=== PATIENT | female | born 1935 | race Two or more races ===

== ENCOUNTER 2019-08-23 20:01 | Inpatient (IN) | payer MEDICAID ==
[~2019-08-23] VITALS: Ht 154.9 cm; Wt 74.1 kg
[2019-08-24] MEDS ORDERED: MORPHINE SULFATE 4 MG/ML CPJ (NOT FOR IM USE) IV STA (02:25)
[2019-08-24] MEDS ORDERED: ONDANSETRON HCL 4MG/2ML INJ IV STA (02:25)
[2019-08-24] MEDS ORDERED: CLINDAMYCIN 600 MG in DEXTROSE 5% WATER 50 ML IV ONE (02:30)
[2019-08-24 03:10] LABS: BASOPHILS % 0.7 % (0.0-2.0); EOSINOPHILS % 7.5 % (0.0-5.0); HEMATOCRIT. 26.1 % (36.0-48.0); HEMOGLOBIN. 8.7 g/dL (12.0-16.0); LYMPHOCYTES % 18.6 % (20.0-50.0); MEAN CORPUSCULAR VOLUME 87.3 fL (81.0-99.0); MEAN PLATELET VOLUME 8.4 fl (7.4-10.4); MONOCYTES % 5.5 % (2.0-8.0); NEUTROPHILS % 67.7 % (40.0-76.0); PLATELET 267 x1000/uL (130-400); RED BLOOD CELL COUNT 2.99 mill/uL (4.2-5.4); RED CELL DISTRIBUTION WIDTH 14.5 % (11.6-14.6)
[2019-08-24 03:22] LABS: CHLORIDE 100 mEq/L (98-107)
[2019-08-24] MEDS ORDERED: CLINDAMYCIN 600 MG in SODIUM CHLORIDE 0.9% 50 ML IV NR (03:30)
[2019-08-24] MEDS ORDERED: SODIUM CHLORIDE 0.9% 1,000 ML IV ONE (04:48)
[2019-08-24 09:10] VITALS: BP 137/70
[2019-08-24 09:31] VITALS: BP 137/70
[2019-08-24 10:00] VITALS: BP 120/65
[2019-08-24] MEDS ORDERED: DOCUSATE SODIUM 100MG CAPSULE PO PRN (11:45)
[2019-08-24] MEDS ORDERED: ACETAMINOPHEN 325MG TABLET PO PRN (11:45)
[2019-08-24] MEDS ORDERED: GUAIFENESIN 200MG/10ML SUGAR FREE UDC PO PRN (11:45)
[2019-08-24] MEDS ORDERED: LORAZEPAM 0.5MG TABLET PO PRN (11:45)
[2019-08-24] MEDS ORDERED: CLONIDINE 0.1MG TABLET PO PRN (11:45)
[2019-08-24] MEDS ORDERED: IPRATROPIUM/ALBUTEROL 0.5-3(2.5)MG/3ML NEB HHN PRN (12:00)
[2019-08-24] MEDS ORDERED: PIOG15TA68 MT (12:38)
[2019-08-24] MEDS ORDERED: FERR325T6 MT (12:38)
[2019-08-24] MEDS ORDERED: ATOR40TA70 MT (12:38)
[2019-08-24] MEDS ORDERED: LISI10TA5 MT (12:38)
[2019-08-24] MEDS ORDERED: RIVA10TA MT (12:38)
[2019-08-24] MEDS ORDERED: LEVO50TA8 MT (12:38)
[2019-08-24] MEDS ORDERED: PREG150C MT (12:38)
[2019-08-24] MEDS ORDERED: LIP40 MT (12:38)
[2019-08-24] MEDS ORDERED: GLIP10TA10 MT (12:38)
[2019-08-24] MEDS: SODIUM CHLORIDE 0.9% 1,000 ML IV SCH (13:45)
[2019-08-24] MEDS: LEVOTHYROXINE SODIUM 50MCG TABLET PO SCH (13:45)
[2019-08-24] MEDS ORDERED: VANCOMYCIN 1500MG in DEXTROSE 5% WATER 250ML IV NR (14:00)
[2019-08-24] MEDS: PIPERACILLIN/TAZOBACTAM 2.25 G in DEXTROSE 5% WATER 50 ML IV SCH ×3 (14:35→23:19)
[2019-08-24] MEDS ORDERED: DEXTROSE 50% WATER 50ML SYRINGE IV PRN (15:30)
[2019-08-24 16:00] VITALS: BP 125/58
[2019-08-24] MEDS: BLOOD SUGAR DIAGNOSTIC STRIP TEST SCH ×2 (17:30→21:14)
[2019-08-24] MEDS: INSULIN LISPRO 100 UNITS/ML SUBCUT SCH ×2 (18:00→21:13)
[2019-08-24 20:00] VITALS: BP 103/34
[2019-08-24] MEDS: ATORVASTATIN CALCIUM 40MG TABLET PO SCH (21:12)
[2019-08-24 22:00] VITALS: BP 121/46
[2019-08-25] VITALS (11 sets, daily range): BP systolic 105–138; BP diastolic 40–79
[2019-08-25] MEDS: HYDROCODONE/ACETAMINOPHEN 5/325MG TABLET PO PRN ×2 (03:18→15:10)
[2019-08-25] MEDS: PIPERACILLIN/TAZOBACTAM 2.25 G in DEXTROSE 5% WATER 50 ML IV SCH ×4 (05:29→23:29)
[2019-08-25] MEDS: SODIUM CHLORIDE 0.9% 1,000 ML IV SCH ×2 (05:29→17:05)
[2019-08-25 07:34] LABS: BASOPHILS % 0.6 % (0.0-2.0); HEMATOCRIT. 23.8 % (36.0-48.0); LYMPHOCYTES % 21.8 % (20.0-50.0); MEAN CORPUSCULAR HEMOGLOBIN 29.3 pg (28.0-32.0); MEAN CORPUSCULAR VOLUME 86.8 fL (81.0-99.0); MEAN PLATELET VOLUME 8.6 fl (7.4-10.4); NEUTROPHILS % 63.6 % (40.0-76.0); PLATELET 245 x1000/uL (130-400); RED BLOOD CELL COUNT 2.74 mill/uL (4.2-5.4); RED CELL DISTRIBUTION WIDTH 14.4 % (11.6-14.6)
[2019-08-25] MEDS: BLOOD SUGAR DIAGNOSTIC STRIP TEST SCH ×4 (07:41→21:22)
[2019-08-25] MEDS: LEVOTHYROXINE SODIUM 50MCG TABLET PO SCH (07:43)
[2019-08-25] MEDS: INSULIN LISPRO 100 UNITS/ML SUBCUT SCH ×4 (08:00→21:21)
[2019-08-25] MEDS ORDERED: HEPARIN SODIUM 1,000 UNIT/1ML VIAL IV ONE (11:44)
[2019-08-25] MEDS: VANCOMYCIN 750 MG PREMIX 150 ML IV SCH (15:09)
[2019-08-25] MEDS ORDERED: IOHEXOL-350 100 ML BOTTLE ONE (15:16)
[2019-08-25] MEDS: AMLODIPINE 5MG TABLET PO SCH (18:09)
[2019-08-25] MEDS: ATORVASTATIN CALCIUM 40MG TABLET PO SCH (21:22)
[2019-08-25] MEDS: ONDANSETRON HCL 4MG/2ML INJ IV PRN (23:29)
[2019-08-26] VITALS (9 sets, daily range): BP systolic 84–135; BP diastolic 42–77
[2019-08-26] MEDS: SODIUM CHLORIDE 0.9% 1,000 ML IV SCH ×2 (03:45→17:03)
[2019-08-26] MEDS: PIPERACILLIN/TAZOBACTAM 2.25 G in DEXTROSE 5% WATER 50 ML IV SCH ×3 (05:21→17:04)
[2019-08-26 06:59] LABS: BASOPHILS % 0.7 % (0.0-2.0); EOSINOPHILS % 6.8 % (0.0-5.0); HEMATOCRIT. 24.8 % (36.0-48.0); HEMOGLOBIN. 8.3 g/dL (12.0-16.0); LYMPHOCYTES % 23.5 % (20.0-50.0); MEAN CORPUSCULAR HEMOGLOBIN 29.2 pg (28.0-32.0); MEAN CORPUSCULAR VOLUME 87.2 fL (81.0-99.0); MEAN PLATELET VOLUME 8.5 fl (7.4-10.4); MONOCYTES % 5.7 % (2.0-8.0); NEUTROPHILS % 63.3 % (40.0-76.0); PLATELET 248 x1000/uL (130-400); RED BLOOD CELL COUNT 2.84 mill/uL (4.2-5.4); RED CELL DISTRIBUTION WIDTH 14.2 % (11.6-14.6)
[2019-08-26] MEDS: LEVOTHYROXINE SODIUM 50MCG TABLET PO SCH (07:30)
[2019-08-26] MEDS: INSULIN LISPRO 100 UNITS/ML SUBCUT SCH ×4 (08:00→21:24)
[2019-08-26] MEDS: BLOOD SUGAR DIAGNOSTIC STRIP TEST SCH ×4 (08:07→21:19)
[2019-08-26] MEDS: AMLODIPINE 5MG TABLET PO SCH (08:18)
[2019-08-26] MEDS ORDERED: IODIXANOL 320MG/ML 100 ML BOTTLE IV ONE (11:20)
[2019-08-26] MEDS ORDERED: LIDOCAINE HCL 1% 20ML VIAL (Pyxis) INJ ONE (11:20)
[2019-08-26] MEDS ORDERED: MIDAZOLAM HCL 2 MG/2 ML VIAL ONE (11:42)
[2019-08-26] MEDS ORDERED: FENTANYL CITRATE/PF 50MCG/ML 2ML VIAL ONE (11:42)
[2019-08-26] MEDS ORDERED: IOHEXOL-300 100 ML BOTTLE ONE (12:05)
[2019-08-26] MEDS: HYDROCODONE/ACETAMINOPHEN 5/325MG TABLET PO PRN (14:28)
[2019-08-26] MEDS: VANCOMYCIN 750 MG PREMIX 150 ML IV SCH (14:31)
[2019-08-26] MEDS: CLOPIDOGREL 75MG TABLET PO SCH (17:03)
[2019-08-26] MEDS: ASPIRIN 325MG EC TABLET PO SCH (17:03)
[2019-08-26] MEDS: ONDANSETRON HCL 4MG/2ML INJ IV PRN ×2 (17:19→22:11)
[2019-08-26] MEDS ORDERED: METOCLOPRAMIDE HCL 10MG/2ML VIAL IV NR (18:30)
[2019-08-26] MEDS: PANTOPRAZOLE SODIUM 40 MG/VIAL IV SCH (20:07)
[2019-08-26 20:14] LABS: HEMATOCRIT 25.3 % (36.0-48.0); HEMOGLOBIN 8.6 g/dL (12.0-16.0)
[2019-08-26] MEDS: ATORVASTATIN CALCIUM 40MG TABLET PO SCH (21:00)
[2019-08-27] VITALS (27 sets, daily range): BP systolic 81–147; BP diastolic 33–78
[2019-08-27] MEDS: PIPERACILLIN/TAZOBACTAM 2.25 G in DEXTROSE 5% WATER 50 ML IV SCH ×4 (00:21→17:30)
[2019-08-27] MEDS: BLOOD SUGAR DIAGNOSTIC STRIP TEST SCH ×4 (06:06→20:42)
[2019-08-27] MEDS: LEVOTHYROXINE SODIUM 50MCG TABLET PO SCH (06:15)
[2019-08-27] MEDS: INSULIN LISPRO 100 UNITS/ML SUBCUT SCH ×4 (07:20→21:42)
[2019-08-27] MEDS: ASPIRIN 325MG EC TABLET PO SCH (08:23)
[2019-08-27] MEDS: CLOPIDOGREL 75MG TABLET PO SCH (08:24)
[2019-08-27] MEDS: AMLODIPINE 5MG TABLET PO SCH (08:24)
[2019-08-27] MEDS: PANTOPRAZOLE SODIUM 40 MG/VIAL IV SCH ×2 (08:24→20:40)
[2019-08-27 08:44] LABS: BASOPHILS % 0.3 % (0.0-2.0); EOSINOPHILS % 1.3 % (0.0-5.0); LYMPHOCYTES % 15.7 % (20.0-50.0); MEAN CORPUSCULAR VOLUME 86.9 fL (81.0-99.0); MEAN PLATELET VOLUME 8.6 fl (7.4-10.4); MONOCYTES % 5.9 % (2.0-8.0); NEUTROPHILS % 76.8 % (40.0-76.0); PLATELET 227 x1000/uL (130-400); RED BLOOD CELL COUNT 2.34 mill/uL (4.2-5.4); RED CELL DISTRIBUTION WIDTH 14.5 % (11.6-14.6)
[2019-08-27 08:45] LABS: HEMATOCRIT. 20.4 % (36.0-48.0)
[2019-08-27] MEDS ORDERED: LIDOCAINE HCL 1% 20ML VIAL (Pyxis) INJ ONE (11:51)
[2019-08-27] MEDS: VANCOMYCIN 750 MG PREMIX 150 ML IV SCH (13:19)
[2019-08-27] MEDS ORDERED: BISACODYL 5MG TABLET PO NR (20:00)
[2019-08-27] MEDS: ATORVASTATIN CALCIUM 40MG TABLET PO SCH (20:39)
[2019-08-27] MEDS: SODIUM CHLORIDE 0.9% 1,000 ML IV SCH (20:42)
[2019-08-27 21:56] LABS: HEMATOCRIT 24.7 % (36.0-48.0); HEMOGLOBIN 8.5 g/dL (12.0-16.0)
[2019-08-28] VITALS (20 sets, daily range): BP systolic 90–158; BP diastolic 40–104
[2019-08-28] MEDS: PIPERACILLIN/TAZOBACTAM 2.25 G in DEXTROSE 5% WATER 50 ML IV SCH ×4 (00:08→18:13)
[2019-08-28] MEDS: LEVOTHYROXINE SODIUM 50MCG TABLET PO SCH (06:03)
[2019-08-28] MEDS: BLOOD SUGAR DIAGNOSTIC STRIP TEST SCH ×4 (06:08→20:55)
[2019-08-28] MEDS: INSULIN LISPRO 100 UNITS/ML SUBCUT SCH ×4 (07:20→20:55)
[2019-08-28] MEDS: ASPIRIN 325MG EC TABLET PO SCH (08:30)
[2019-08-28] MEDS: DOCUSATE SODIUM 100MG CAPSULE PO SCH ×2 (08:30→18:13)
[2019-08-28] MEDS: CLOPIDOGREL 75MG TABLET PO SCH (08:30)
[2019-08-28] MEDS: PANTOPRAZOLE SODIUM 40 MG/VIAL IV SCH ×2 (08:31→21:00)
[2019-08-28] MEDS: SODIUM CHLORIDE 0.9% 1,000 ML IV SCH (08:31)
[2019-08-28] MEDS: AMLODIPINE 5MG TABLET PO SCH (08:31)
[2019-08-28 09:27] LABS: BASOPHILS % 0.3 % (0.0-2.0); EOSINOPHILS % 11.9 % (0.0-5.0); HEMATOCRIT. 27.5 % (36.0-48.0); HEMOGLOBIN. 9.4 g/dL (12.0-16.0); LYMPHOCYTES % 9.4 % (20.0-50.0); MEAN CORPUSCULAR HEMOGLOBIN 29.2 pg (28.0-32.0); MEAN CORPUSCULAR VOLUME 85.7 fL (81.0-99.0); MEAN PLATELET VOLUME 8.1 fl (7.4-10.4); MONOCYTES % 3.2 % (2.0-8.0); NEUTROPHILS % 75.2 % (40.0-76.0); PLATELET 221 x1000/uL (130-400); RED BLOOD CELL COUNT 3.21 mill/uL (4.2-5.4); RED CELL DISTRIBUTION WIDTH 14.5 % (11.6-14.6)
[2019-08-28] MEDS: HYDROCODONE/ACETAMINOPHEN 5/325MG TABLET PO PRN ×2 (09:37→22:54)
[2019-08-28] MEDS ORDERED: SORBITOL 70% SOLN 30ML PO SCH (12:00)
[2019-08-28] MEDS: VANCOMYCIN 750 MG PREMIX 150 ML IV SCH (13:28)
[2019-08-28] MEDS: ATORVASTATIN CALCIUM 40MG TABLET PO SCH (21:00)
[2019-08-29] VITALS (12 sets, daily range): BP systolic 97–160; BP diastolic 42–93
[2019-08-29] MEDS: PIPERACILLIN/TAZOBACTAM 2.25 G in DEXTROSE 5% WATER 50 ML IV SCH ×3 (00:37→12:14)
[2019-08-29] MEDS: SODIUM CHLORIDE 0.9% 1,000 ML IV SCH ×2 (02:54→11:10)
[2019-08-29] MEDS: HYDROCODONE/ACETAMINOPHEN 5/325MG TABLET PO PRN (05:51)
[2019-08-29] MEDS: LEVOTHYROXINE SODIUM 50MCG TABLET PO SCH (05:51)
[2019-08-29] MEDS: BLOOD SUGAR DIAGNOSTIC STRIP TEST SCH ×2 (05:55→11:10)
[2019-08-29] MEDS: INSULIN LISPRO 100 UNITS/ML SUBCUT SCH ×2 (07:20→12:15)
[2019-08-29 08:03] LABS: HEMATOCRIT. 28.9 % (36.0-48.0); MEAN CORPUSCULAR HEMOGLOBIN 29.9 pg (28.0-32.0); MEAN CORPUSCULAR VOLUME 86.6 fL (81.0-99.0); MEAN PLATELET VOLUME 8.6 fl (7.4-10.4); PLATELET 237 x1000/uL (130-400); RED BLOOD CELL COUNT 3.34 mill/uL (4.2-5.4); RED CELL DISTRIBUTION WIDTH 14.6 % (11.6-14.6)
[2019-08-29] MEDS: CLOPIDOGREL 75MG TABLET PO SCH (09:08)
[2019-08-29] MEDS: PANTOPRAZOLE SODIUM 40 MG/VIAL IV SCH (09:08)
[2019-08-29] MEDS: AMLODIPINE 5MG TABLET PO SCH (09:08)
[2019-08-29] MEDS: ASPIRIN 325MG EC TABLET PO SCH (09:08)
[2019-08-29] MEDS: DOCUSATE SODIUM 100MG CAPSULE PO SCH (09:08)
[2019-08-29 09:11] LABS: CHLORIDE 107 mEq/L (98-107)
[2019-08-29] MEDS ORDERED: PANT40TA4 MT (10:17)
[2019-08-29] MEDS ORDERED: CLOP75TA15 PO (10:17)
[2019-08-29] MEDS ORDERED: AMLO5TAB88 PO (10:17)
[2019-08-29] MEDS ORDERED: ASPI325T85 PO (10:17)
[2019-08-29] MEDS: VANCOMYCIN 750 MG PREMIX 150 ML IV SCH (12:00)
[2019-08-29 17:09] LABS: PLATELET ESTIMATE NORMAL
== END 2019-08-29 14:20 | disposition home health service (06) | DRG 181 ==
LOC: ER 20:01 → EDBEDREQ 08-24 05:34 → EDBEDREQTM 08-24 05:34 → ENRESERV 08-24 07:24 → 5EST 08-24 08:41 → 3WST 08-26 13:31
PROVIDERS: ADMIT Internal Medicine; ATTEND Internal Medicine
PROC: 047L3ZZ Dilation of Left Femoral Artery, Percutaneous Approach (ICD-10-PCS; 2019-08-26)
PROC: 047Q3ZZ Dilation of Left Anterior Tibial Artery, Percutaneous Approach (ICD-10-PCS; 2019-08-26)
PROC: 047S3ZZ Dilation of Left Posterior Tibial Artery, Percutaneous Approach (ICD-10-PCS; 2019-08-26)
PROC: 047U3ZZ Dilation of Left Peroneal Artery, Percutaneous Approach (ICD-10-PCS; 2019-08-26)
PROC: 047N3DZ Dilation of Left Popliteal Artery with Intraluminal Device, Percutaneous Approach (ICD-10-PCS; 2019-08-26)
PROC: 02HV33Z Insertion of Infusion Device into Superior Vena Cava, Percutaneous Approach (ICD-10-PCS; principal; 2019-08-27)
PROC: B548ZZA Ultrasonography of Superior Vena Cava, Guidance (ICD-10-PCS; 2019-08-27)
PROC: B5181ZA Fluoroscopy of Superior Vena Cava using Low Osmolar Contrast, Guidance (ICD-10-PCS; 2019-08-27)
PROC: B41G1ZZ Fluoroscopy of Left Lower Extremity Arteries using Low Osmolar Contrast (ICD-10-PCS; 2019-08-27)
PROC: 30233N1 Transfusion of Nonautologous Red Blood Cells into Peripheral Vein, Percutaneous Approach (ICD-10-PCS; 2019-08-27)
DX: I70.262 Atherosclerosis of native arteries of extremities with gangrene, left leg (principal); N17.9 Acute kidney failure, unspecified; I95.9 Hypotension, unspecified; E11.621 Type 2 diabetes mellitus with foot ulcer; K92.2 Gastrointestinal hemorrhage, unspecified; E11.52 Type 2 diabetes mellitus with diabetic peripheral angiopathy with gangrene; L97.529 Non-pressure chronic ulcer of other part of left foot with unspecified severity; E11.69 Type 2 diabetes mellitus with other specified complication; M86.8X7 Other osteomyelitis, ankle and foot; D64.9 Anemia, unspecified; I10 Essential (primary) hypertension; E03.9 Hypothyroidism, unspecified; I71.9 Aortic aneurysm of unspecified site, without rupture; E78.00 Pure hypercholesterolemia, unspecified; E78.5 Hyperlipidemia, unspecified; F17.210 Nicotine dependence, cigarettes, uncomplicated; E66.9 Obesity, unspecified; Z99.3 Dependence on wheelchair
CPT/HCPCS: 36415; 36573; 37226; 37228; 71045; 73620; 73721; 75635; 75710; 76937; 80048; 80053; 80061; 80202; 82270; 82728; 82962; 83036; 83540; 83550; 83605; 84145; 85014; 85018; 85025; 85347; 85651; 86140; 86850; 86900; 86920; 93005; 93306; 93922; 93970; 99285; C1725; C1760; C1769; C1876; C1893; C1894; C9113; J1644; J1815; J2250; J2270; J2405; J2543; J2765; J3010; J3370; J3490; J7030; J7060; P9021; Q9967